=== PATIENT | male | born 1945 | race Caucasian/White ===

== ENCOUNTER 2024-06-01 20:15 | Emergency (ER) | payer OTHER ==
[~2024-06-01] VITALS: Ht 177.8 cm; Wt 65.8 kg
[2024-06-01] MEDS ORDERED: ONDANSETRON 4 MG/2 ML VIAL ONE (20:36)
[2024-06-01] MEDS ORDERED: ASPIRIN 81 MG TAB.CHEW ONE (20:36)
[2024-06-01] MEDS ORDERED: MORPHINE SULFATE 4 MG/1 ML DISP.SYRIN ONE (20:36)
[2024-06-01] MEDS ORDERED: MORPHINE SULFATE 2 MG/1 ML DISP.SYRIN ONE (20:36)
[2024-06-01 20:50] LABS: BASOPHILS % (AUTO) 0.4 % (0.0-2.0); EOSINOPHILS % (AUTO) 0.2 % (0.0-7.0); HEMATOCRIT 36.8 % (36.7-47.1); HEMOGLOBIN 12.1 g/dL (12.5-16.3); LYMPHOCYTES # (AUTO) 1.5 K/uL (0.8-4.8); LYMPHOCYTES % (AUTO) 23.6 % (20.5-51.5); MEAN CORPUSCULAR HEMOGLOBIN 30.7 uug (23.8-33.4); MEAN CORPUSCULAR HGB CONC 33 g/dL (32.5-36.3); MEAN CORPUSCULAR VOLUME 93.2 fL (73.0-96.2); MONOCYTES # (AUTO) 0.1 K/uL (0.1-1.30); MONOCYTES % (AUTO) 1.5 % (0.0-11.0); NEUTROPHILS # (AUTO) 4.8 K/uL (1.8-8.9); NEUTROPHILS % (AUTO) 74.3 % (38.5-71.5); PLATELET COUNT (AUTO) 265 K/uL (152-348); RED BLOOD CELL COUNT(AUTO) 3.95 MIL/uL (4.06-5.63); RED CELL DISTRIBUTION WIDTH 14.8 % (12.1-16.2); WHITE BLOOD COUNT (AUTO) 6.5 K/uL (3.6-10.2)
[2024-06-01] MEDS: IV NORMAL SALINE 1000 ML BAG IV ONE ×2 (20:52→23:22)
[2024-06-01] MEDS: ASPIRIN 81 MG TAB.CHEW PO ONE (20:53)
[2024-06-01] MEDS: MORPHINE SULFATE 4 MG/1 ML DISP.SYRIN IV ONE (20:54)
[2024-06-01] MEDS: ONDANSETRON 4 MG/2 ML VIAL IV ONE (20:54)
[2024-06-01] MEDS ORDERED: NITROGLYCERIN OINT 1 GM PACKET TP ONE (20:56)
[2024-06-01] MEDS: NITROGLYCERIN OINT 1 GM PACKET TP ONE (20:58)
[2024-06-01 20:59] LABS: CALCIUM 9.3 mg/dL (8.5-10.1); CARBON DIOXIDE 24 mmol/L (21-32); CHLORIDE 104 mmol/L (98-107); CREATININE 1.1 mg/dL (0.6-1.3); GLUCOSE 164 mg/dL (74-106); POTASSIUM 4.5 mmol/L (3.5-5.1); SODIUM SERUM 141 mmol/L (136-145); UREA NITROGEN, BLOOD 16 mg/dL (7-18)
[2024-06-01 21:12] LABS: ALANINE AMINOTRANSFERASE 16 U/L (16-63); ALBUMIN 3.7 g/dL (3.4-5.0); ALKALINE PHOSPHATASE 84 U/L (50-136); ASPARTATE AMINOTRANSFERASE 16 U/L (15-37); BILIRUBIN,DIRECT 0.1 mg/dL (0.0-0.2); BILIRUBIN,TOTAL 0.3 mg/dL (0.2-1.0); NT-PRO BNP 143 pg/mL (0-125)
[2024-06-01 21:28] LABS: ABG HCO3 18.5 mmol/L (21.0-28.0); ABG PCO2 29.3 mmHg (35.0-48.0); ABG PH 7.419 (7.350-7.450); ABG PO2 146.7 mmHg (83.0-108.0); ABG SITE RIGHT RADIAL; ABG TOTAL HEMOGLOBIN 10.7 G/dL (13.5-17.5); COHb 0.7 % (0.5-1.5); MetHb 0.3 % (0.0-1.5); O2Hb 98.2 % (94.0-98.0)
[2024-06-01] MEDS ORDERED: HYDROMORPHONE 1 MG/1 ML DISP.SYRIN ONE ×2 (21:37→23:07)
[2024-06-01] MEDS: HYDROMORPHONE 1 MG/1 ML DISP.SYRIN IV ONE ×2 (21:42→23:15)
[2024-06-01] MEDS ORDERED: SWABABLE VALVE TRANSFER SET EA MC ONE (22:16)
[2024-06-01] MEDS ORDERED: IV NORMAL SALINE 250 ML IV ONE (22:16)
[2024-06-01] MEDS ORDERED: IOHEXOL 350 100 ML INFUS..BTL ONE (22:16)
[2024-06-02] MEDS ORDERED: ONDANSETRON 4 MG/2 ML VIAL ONE
[2024-06-02] MEDS: ONDANSETRON 4 MG/2 ML VIAL IV ONE (00:04)
[2024-06-02] MEDS ORDERED: METOCLOPRAMIDE HCL 10 MG/2 ML VIAL ONE (00:33)
[2024-06-02] MEDS: METOCLOPRAMIDE HCL 10 MG/2 ML VIAL IV ONE (00:39)
[2024-06-02 03:35] VITALS: BP 108/62; TEMP 97.6; O2SAT 99
== END 2024-06-02 01:20 | disposition home or self-care (01) ==
LOC: ER 20:15
DX: R06.00 Dyspnea, unspecified (principal); R07.89 Other chest pain; E78.5 Hyperlipidemia, unspecified; K21.9 Gastro-esophageal reflux disease without esophagitis; N40.0 Benign prostatic hyperplasia without lower urinary tract symptoms; F17.200 Nicotine dependence, unspecified, uncomplicated; Z20.822 Contact with and (suspected) exposure to COVID-19
CPT/HCPCS: 36415; 36600; 71045; 71275; 82803; 84484; 85025; 87040; A4606; A4663; J1171; J2270; J2405; J2765; J7040; Q9967